=== PATIENT | male | born 1985 | race Caucasian/White ===

== ENCOUNTER 2018-11-10 10:48 | Emergency (ER) | payer OTHER, SELFPAY ==
[2018-11-10 10:49] VITALS: BP 121/93; PULSE 115; RESP 20; TEMP 37.1; O2SAT 96; BMI 35.6
--- NOTE | 2018-11-10 11:12 | RAD_ITS ---
STUDY: X-RAY CHEST REASON FOR EXAM: Male, 33 years old. Productive cough and fever TECHNIQUE: PA and lateral views of the chest. COMPARISON: None. FINDINGS: In the left midlung field, there is a focal area of consolidation which likely represents dense pneumonia measuring 3.4 x 6.3 cm. Lungs are otherwise clear. There is no demonstrated pleural abnormality. Normal size heart. Normal mediastinum and heather. Normal visualized pulmonary arteries. Normal visualized aortic arch and descending thoracic aorta. Normal visualized thoracic spine. Normal visualized ribs, clavicles, and shoulders. There is no demonstrated abnormality of the visualized soft tissue structures of the upper abdomen. RAD/Chest PA and Lateral IMPRESSION: Left mid lung dense consolidation/pneumonia. Right lung is clear. Less likely to represent malignancy, especially given patient's age. Recommend repeat chest x-ray in 2-4 weeks. Electronically Signed: Kaiser Oneill DO at 12:11 EST Tel , Service support ,
--- NOTE | 2018-11-10 11:12 | EKG12_ITS ---
Test Reason : FEVER Blood Pressure : / mmHG Vent. Rate : 100 BPM Atrial Rate : 100 BPM P-R Int : 154 ms QRS Dur : 080 ms QT Int : 334 ms P-R-T Axes : 067 -08 -04 degrees QTc Int : 430 ms Normal sinus rhythm Normal ECG Confirmed by CRISTAL ALCANTARA MD ([id number]), food editor ETIENNE DUBOSE ([id number]) on 11/15/2018 4:54:32 PM Referred By: CLAUDIO Confirmed By:CRISTAL ALCANTARA MD
--- NOTE | 2018-11-10 11:18 | NURSING ---
NO OLD EKGS
[2018-11-10 11:29] LABS: Absolute Lymphocyte Count 0.87 X10^3/ul (0.83-4.51); Absolute Neutrophil Count 6.5 X10^3/uL (2.0-7.7); Basophil# 0.02 X10^3/uL; Basophil% 0.2 % (0-1); Hematocrit 41.4 % (40-54); Hemoglobin 13.9 g/dl (13.0-16.5); Lymphocyte # 0.87 X10^3/ul (4.0); Lymphocyte % 10.6 % (19-41); Mean Corp Hgb Conc 33.6 g/gl (32-36); Mean Corpuscular Hgb 30.2 pg (27.0-32.0); Monocyte# 0.77 X10^3/uL; Monocyte% 9.4 % (0-10); Neutrophil # 6.51 X10^3/uL (2.7-7.7); Neutrophil % 79.6 % (47-70); POSITIVE COUNT NO; POSITIVE DIFFERENTIAL NO; POSITIVE MORPHOLOGY NO; Platelet Count 155 K/mm3 (150-450); RBC Distribution Width CV 12.8 % (11.6-14.6); RBC Distribution Width SD 41.9 fl (35.1-43.9); White Blood Count 8.2 K/mm3 (4.4-11.0)
[2018-11-10] MEDS: Ketorolac 30 MG/ML Syringe IV (11:29)
[2018-11-10] MEDS: Acetaminophen 500 MG Tablet 1000 MG PO (11:29)
[2018-11-10] MEDS: 0.9% Normal Saline 1,000 ML 999 ML IV (11:29)
[2018-11-10 11:45] LABS: Anion Gap 11 (5-15); BUN 11 mg/dL (7-18); BUN/Creat Ratio 8.1 RATIO (10-20); Calcium,Total 8.6 mg/dL (8.5-10.1); Chloride 103 mmol/L (98-107); Creatinine, Serum 1.35 mg/dL (0.70-1.30); EST Glomerular Filtration Rate 65 mL/min (>60); Est Glom Filt Rate - Afr Amer 78 mL/min (>60); Estimated Creatinine Clearance 87.96 ml/min; Glucose 119 mg/dL (74-106); Potassium 3.7 mmol/L (3.5-5.1); Sodium Level 137 mmol/L (136-145)
--- NOTE | 2018-11-10 12:19 | ED.VISSUMM ---
- ER Visit Summary Date of Service: 11/10/18 Chief Complaint: Cough and fever History of Present Illness: The patient is a [address] Oliva. He reports his cough and fever that began 3 days ago. Cough is nonproductive. Reports his fevers been gradually increasing and today was 104 degrees. Reports he has a mild sore throat. He denies any congestion or drainage. He reports he has mild shortness of breath. Is not been wheezing. He does complain of diffuse myalgias. Patient reports that he has gone to urgent care 2 days ago when he had a rapid flu that was negative. Is not had a chest x-ray. Physical Examination: Vitals: 98.8, 121/93, 115, 20, 96% room air which is not hypoxic. General: Well-nourished and well-developed. Head: Normocephalic atraumatic. Neck: Supple, no lymphadenopathy. No JVD. Nontender. Cardiovascular: Tachycardic regular rhythm. No murmurs. Respiratory: No respiratory distress. Clear to auscultation bilaterally. Abdominal: Soft, nontender, nondistended, normal bowel sounds. No guarding, rebound, or peritoneal signs. Back: Nontender. Extremities: Nontender, no edema. Skin: Normal color, no rash. Neurologic: Alert and oriented ?3. Cranial nerves II through XII are intact. Normal strength and sensation. Psych: Normal affect. Test Results: Influenza is negative. Chest x-ray shows a left upper lobe infiltrate. CBC is more for 7 neutrophils 80 and lymphocytes 11. Chem-7 marked creatinine 1.35 glucose 119. Emergency Department Course and Treatment: Patient had an IV placed. He was given a liter normal saline. He was given Toradol IV and Tylenol p.o. He was given Levaquin p.o. Treatment Plan: Patient feels well and would like to go home. His curb 65 is 0. He will be discharged on Levaquin instructed by Dr. Oliva in 1 week for another exam. Return to the emergency department for any worsening symptoms. Disposition: To home in improved and stable condition. Impression: 1. Pneumonia, community acquired. This note was generated with [employer] software. It may contain incorrect words, spelling, and punctuation that were not noted in review of the chart prior to signing ED Disposition - Plan for ED Patient: Chief Complaint: Fever Instructions: ED Pneumonia Adult Prescriptions: Levofloxacin [Levaquin] 750 mg PO DAILY #7 tablet Referrals: Goran Oliva DO [Primary Care Provider] - 1 Week
[2018-11-10] MEDS: levoFLOXacin 750 MG Tablet PO (12:30)
[2018-11-10 12:42] VITALS: BP 124/68; PULSE 90; RESP 16; O2SAT 96
== END 2018-11-10 12:45 | disposition home or self-care (01) ==
PROVIDERS: Emergency Provider Emergency Medicine; Family Provider Family Medicine; PCP Family Medicine
DX: J18.9 Pneumonia, unspecified organism (principal)
CPT/HCPCS: 71046; 80048; 85025; 87804; 93005; 96361; 96374; 99285; J7030

== ENCOUNTER → 2019-09-04 | Outpatient (CLI) | payer OTHER, SELFPAY ==
[2019-01-19 17:08] VITALS: BMI 35.6
--- NOTE | 2019-09-04 10:57 | RAD_ITS ---
STUDY: X-RAY - UNILATERAL RIBS ( LEFT ) WITH CHEST REASON FOR EXAM: Male, 34 years old. Left lateral rib pain following a fall. TECHNIQUE - RIBS: 4 view(s) of the ribs. TECHNIQUE - CHEST: Single PA view of the chest. COMPARISON: None. FINDINGS - RIBS: Normal visualized ribs without a demonstrated fracture. FINDINGS - CHEST: The lungs are clear and expanded. There is no demonstrated pleural abnormality. Normal size heart. Normal mediastinum and heather. Normal visualized pulmonary arteries. Normal visualized aortic arch and descending thoracic aorta. Normal visualized thoracic spine. Normal visualized ribs, clavicles, and shoulders. There is no demonstrated abnormality of the visualized soft tissue structures of the upper abdomen. RAD/Ribs Uni Min 3V w/PA Chest IMPRESSION: RIBS: Normal x-ray examination of the ribs. CHEST: Normal x-ray examination of the chest. Electronically Signed: Rex Dewitt, at 11:21 EST , Service support ,
== END | disposition home or self-care (01) ==
LOC: RAD 10:50
PROVIDERS: Family Provider Family Medicine; PCP Family Medicine; Referring Provider Family Medicine; Visit Provider Family Medicine
DX: R07.81 Pleurodynia (principal)
CPT/HCPCS: 71101

== ENCOUNTER → 2019-09-29 11:46 | Outpatient (CLI) | payer OTHER, SELFPAY ==
[2019-09-29 11:33] VITALS: BMI 35.6
--- NOTE | 2019-09-29 11:49 | RAD_ITS ---
STUDY: X-RAY - UNILATERAL RIBS ( LEFT ) REASON FOR EXAM: Male, 34 years old. TECHNIQUE: view(s) of the ribs. COMPARISON: None. FINDINGS: Normal visualized ribs without a demonstrated fracture. The visualized lung is clear and expanded. RAD/Ribs Unil 2V No CXR IMPRESSION: Normal x-ray examination of the ribs. Electronically Signed: Edith Pickard, at 12:16 EST Tel , Service support ,
== END ==
PROVIDERS: Family Provider Family Medicine; PCP Family Medicine; Referring Provider Physician Assistant Surgical; Visit Provider Physician Assistant Surgical
DX: R07.81 Pleurodynia (principal)
CPT/HCPCS: 71100

== ENCOUNTER 2023-11-03 01:00 | Emergency (ER) | payer OTHER, SELFPAY ==
[2023-11-03 01:04] VITALS: BP 139/86; PULSE 77; RESP 16; TEMP 36.6; O2SAT 100; BMI 29.0
--- OUTSIDE RECORDS SUMMARY | 2023-11-03 01:14 | XMS RPT_ITS | CCD ---
Author Name Unknown Address [address] [place] [address] Organization [facility] Results Test Name Value Interpretation Reference Range Facil ity Encounters Encounter Date Encounter Type Care Provider Facility Start: 11-08-2018 End: 11-10-2018 [facility] Procedures Date Procedure Procedure Detail Performing Clinician Start: 11-08-2018 Follow-up visit Summary Purpose Family History No Family History Records FoundNo Family History Records FoundNo Family History Records Found Advance Directives No Advanced Directives Records FoundNo Advanced Directives Records FoundNo Advanced Directives Records Found Additional Source Comments (unrecognized sect ion and content) No Status Records FoundNo Status Records FoundNo Status Records Found INFORMATION SOURCE (unrecogn ized section and content) DATE CREATED AUTHOR AUTHOR'S ORGANIZ ATION 11/11/2018 [facility] DATE CREATED AUTHOR AUTHOR'S ORGANIZ ATION 10/14/2022 [facility] FOR RECORDS PERTAINING TO PATIENTS WHO ARE OR HAVE BEEN ENROLLED IN A CHEMICAL DEPENDENCY/SUBSTANCEABUSE PROGRAM, SOME INFORMATION MAY BE OMITTED. This clinical summary was aggregated from multiple sources. Caution should be exercised in using it in the provision of clinical care. This summary normalizes information from multiple sources, and as a consequence, information in this document may materially change the coding, format and clinical context of patient data. In addition, data may be omitted in some cases. CLINICAL DECISIONS SHOULD BE BASED ON THE PRIMARY CLINICAL RECORDS. [employer] provides no warranty or guarantee of the accuracy or completeness of information in this document.
--- NOTE | 2023-11-03 01:40 | CT_ITS ---
EXAM: CT ABDOMEN AND PELVIS WITH INTRAVENOUS CONTRAST CLINICAL INDICATION: diarrhea, rectal pain -- IV PO Contrast TECHNIQUE: Helically acquired images were obtained of the abdomen and pelvis with intravenous contrast. This CT exam was performed using one or more of the following dose reduction techniques: automated exposure control, adjustment of the mA and/or kV according to patient size, and/or use of iterative reconstruction technique. RADIATION DOSE: CTDIvol = 14.21 mGy, DLP = 984.40 mGy-cmContrast: Oral and amp; IV Gastrografin and amp; 100mL Isovue-370 COMPARISON: No relevant prior studies available. FINDINGS: LOWER THORAX: Unremarkable. Lung bases are clear. No cardiomegaly. No significant pericardial effusion. ABDOMEN: LIVER: Unremarkable. Homogeneous. No focal mass. GALLBLADDER AND BILE DUCTS: Unremarkable. No calcified gallstones. No gallbladder distention or wall edema. No intra- or extrahepatic biliary ductal dilation. Normal tortuous gallbladder contains slight gas is seen just inferior to the right lobe of the liver. The cecum is mildly high in position. The jejunum-ligament of Treitz appears normal in position and there is normal orientation of the SMA and SMV. PANCREAS: Unremarkable. No focal cystic or solid mass. SPLEEN: Borderline-mild splenomegaly, 14.2 cm craniocaudal. ADRENALS: Unremarkable. No nodules. KIDNEYS AND URETERS: Unremarkable. Normal renal size and position. No hydronephrosis. STOMACH AND BOWEL: Moderate hypodense fluid in the proximal half of the colon. At least mild wall thickening of distal sigmoid and rectum and descending colon, likely mild distal colitis- proctitis considering the patient''s presentation. Moderate fluid and gas in the proximal three quarters of the colon. Oral contrast reached mid small bowel, no evidence of a high-grade obstruction. PELVIS: APPENDIX: No evidence of acute appendicitis. BLADDER: Unremarkable. REPRODUCTIVE: Unremarkable as visualized. No mass. ABDOMEN and PELVIS: INTRAPERITONEAL SPACE: Slight fluid in the pelvis. No free air. BONES/JOINTS: Unremarkable. No suspicious lytic or blastic abnormality. SOFT TISSUES: Unremarkable. No discrete abdominal or pelvic wall hernia. VASCULATURE: Unremarkable. Abdominal aorta is non-dilated. LYMPH NODES: Mesenteric adenopathy. Uncertain chronicity moderate, numerous mildly enlarged lymph nodes throughout the root of the mesentery and in the right abdomen. CT/Abdomen/Pelvis WITH Contrast IMPRESSION: 1. Findings most likely due to multifocal colitis involving descending colon, mid and distal sigmoid, and rectum. Mildly thick-walled and almost collapsed appearance. 2. Prominent fluid and gas in the proximal half of the colon with slight mucosal enhancement. Possibly also early colitis involving the proximal half of the colon. 3. Normal appendix. 4. Mesenteric adenopathy, moderate, uncertain chronicity. 5. Mild splenomegaly. 6. Slight intrapelvic fluid. Electronically Signed: Gloria Costa MD at 4:49 EST ,
[2023-11-03] MEDS: Ondansetron 4 MG/2 ML Vial IV (01:51)
[2023-11-03] MEDS: Morphine 4 MG/ML Syringe IV (01:51)
[2023-11-03] MEDS: 0.9% Normal Saline (1000mL) 1,000 ML 150 ML IV (01:53)
[2023-11-03 02:02] LABS: Absolute Lymphocyte Count 1.18 X10^3/uL (0.83-4.51); Absolute Neutrophil Count 2.5 X10^3/uL (2.0-7.7); Basophil# 0.02 X10^3/uL; Basophil% 0.5 % (0-1); Eosinophil# 0.06 X10^3/uL; Eosinophils% 1.4 % (0-5); Hematocrit 39.6 % (40-54); Hemoglobin 13.8 g/dL (13.0-16.5); Lymphocyte # 1.18 X10^3/ul (0.83-4.51); Lymphocyte % 26.7 % (19-41); Mean Corp Hgb Conc 34.8 g/dL (32-36); Mean Corpuscular Hgb 30.7 pg (27.0-32.0); Mean Corpuscular Volume 88.2 fL (80-94); Mean Platelet Vol. 10.5 fl (6.2-12.0); Monocyte# 0.69 X10^3/uL; Monocyte% 15.6 % (0-10); NRBC Flagged by Analyzer 0 % (0-5); Neutrophil # 2.46 X10^3/uL (2.7-7.7); Neutrophil % 55.6 % (47-70); Platelet Count 141 K/mm3 (150-450); RBC Distribution Width CV 11.8 % (11.6-14.6); Red Blood Count 4.49 M/mm3 (4.6-6.2); White Blood Count 4.4 K/mm3 (4.4-11.0)
[2023-11-03 02:16] LABS: Anion Gap 6 (5-15); BUN 18 mg/dL (7-18); Calcium,Total 8.4 mg/dL (8.5-10.1); Chloride 107 mmol/L (98-107); EST Glomerular Filtration Rate 72 mL/min (>60); Est Glom Filt Rate - Afr Amer 87 mL/min (>60); Estimated Creatinine Clearance 94.33 ml/min; Glucose 89 mg/dL (74-106); Potassium 3.3 mmol/L (3.5-5.1); Sodium Level 137 mmol/L (136-145)
[2023-11-03 02:25] VITALS: BP 117/75; PULSE 83; RESP 15; O2SAT 100
[2023-11-03] MEDS: HYDROmorphone 0.5 MG/0.5 ML SYRINGE IV ×2 (02:29→04:37)
--- NOTE | 2023-11-03 03:03 | EDS_ITS ---
HPI History of Present Illness Chief Complaint: Diarrhea Informant: patient Onset/Context/Timing Onset: Days (5 days) Narrative Narrative: Patient presents secondary to abdominal pain and diarrhea. He states he dev eloped diarrhea on the . He had abdominal cramping that seem to subside yesterday. He had a semisolid stool yesterday. He woke this morning with recurrent diarrhea and increased pain. No fever or chills. No blood in the stool. No history of IBS or ulcerative colitis. [facility] Medical History (Updated 11/03/23 @ 05:[address] Sofia Sepulveda MD) Arthritis Home Medications ciprofloxacin HCl 500 mg tablet 500 mg PO BID #14 TABLETS 11/03/23 [Rx Last Taken Unknown] metronidazole 500 mg tablet 500 mg PO BID 7 days #14 tabs 11/03/23 [Rx Last Taken Unknown] prednisone 20 mg tablet 40 mg (2 x 20 mg) PO DAILY #8 tabs 11/03/23 [Rx Last Taken Unknown] Allergy/AdvReac Type Severity Reaction Status Date / Time amoxicillin Allergy Unknown Verified 11/03/23 01:04 Penicillins Allergy Unknown Verified 11/03/23 01:04 Social History Smoking Status: Never smoker alcohol intake: current alcohol intake frequency: a few times a week Alcohol type: beer ROS ROS ED Constitutional Constitutional ED: Denies chills or fever(s) Eyes Eyes: Denies discharge from eye(s) ENT ENT ED: Denies discharge from eye(s), rhinorrhea or sore throat Cardiovascular Cardiovascular: Denies chest pain or palpitations Respiratory/Chest Respiratory/Chest: Denies cough or dyspnea Gastrointestinal Gastrointestinal: Reports abdominal pain and diarrhea; Denies nausea or vomiting Genitourinary Genitourinary ED: Denies dysuria Musculoskeletal Musculoskeletal: Denies back pain or extremity pain Integumentary Denies Abrasions or rash Neurologic Neurologic: Denies headache(s) or weakness Psychiatric Psychiatric: Denies anxiety or depression Allergic/Immunologic Allergic/Immunologic ED: Denies lip swelling or urticaria EXAM Physical Exam Const Vital Signs: 11/03/23 01:04 11/03/23 02:25 Temperature 97.8 F Temperature Source Temporal Pulse Rate 77 83 Respiratory Rate 16 15 Blood Pressure 139/86 H 117/75 Blood Pressure Mean 103 89 Pulse Ox 100 100 Oxygen Delivery Method Room Air Room Air Positive well nourished and well developed General Appearance ED: well developed HEENT Reports moist mucous membranes Eyes EOMs intact bilaterally Chest Wall inspection of chest normal and palpation of chest normal Resp normal respiratory effort and clear to auscultation bilaterally Cardio regular rate and regular rhythm GI GI Narrative: Abdomen soft with mild tenderness in the lower abdomen. No guarding or rebound. Auscultation: normoactive bowel sounds Extremity normal to inspection Neuro oriented x3 and no sensory deficits noted Motor Exam: strength 5/5 throughout Psych mental status grossly normal Skin no rashes or lesions noted MDM MDM MDM Narrative Medical decision making narrative: IV line established. Patient given morphine and Zofran for pain and nausea. Labwork obtained to evaluate for leukocytosis, anemia, and electrolyte derangement. CT scan of the abdomen and pelvis obtained to evaluate for colitis or possible early abscess formation. History & Record Review Discussion w/independent historian: Patient and Family Lab Data Attestation: I reviewed the patient's lab results. Labs: Laboratory Results - last 24 hr 11/03/23 01:55 WBC 4.4 RBC 4.49 L Hgb 13.8 Hct 39.6 L MCV 88.2 MCH 30.7 MCHC 34.8 RDW Std Deviation 38.0 RDW Coeff of Francisco Javier 11.8 Plt Count 141 L MPV 10.5 Immature Gran % (Auto) 0.200 Neut % (Auto) 55.6 Lymph % (Auto) 26.7 Lewis % (Auto) 15.6 H Eos % (Auto) 1.4 Baso % (Auto) 0.5 Absolute Neuts (auto) 2.5 Absolute Lymphs (auto) 1.18 Nucleated RBC % 0 Sodium 137 Potassium 3.3 L Chloride 107 Carbon Dioxide 24.0 Anion Gap 6 BUN 18 Creatinine 1.20 Estim Creat Clear Calc 94.33 Est GFR (MDRD) Af Amer 87 Est GFR (MDRD) Non-Af 72 BUN/Creatinine Ratio 15.0 Glucose 89 Calcium 8.4 L Radiography Diagnostic Testing: Clinical Impression(s) from Imaging Studies Abdomen/Pelvis CT 11/03/23 01:40 IMPRESSION: 1. Findings most likely due to multifocal colitis involving descending colon, mid and distal sigmoid, and rectum. Mildly thick-walled and almost collapsed appearance. 2. Prominent fluid and gas in the proximal half of the colon with slight mucosal enhancement. Possibly also early colitis involving the proximal half of the colon. 3. Normal appendix. 4. Mesenteric adenopathy, moderate, uncertain chronicity. 5. Mild splenomegaly. 6. Slight intrapelvic fluid. Electronically Signed: Gloria Costa MD at 4:49 EST Reading Location ID and State: [facility] / [place] Tel , Service support , Treatment and Re-Evaluation :: CBC reveals normal white count 4.4 with a hemoglobin of 13.8. Differential unremarkable. Chemistry studies reveal slightly low potassium at 3.3. Creatinine is 1.2. CT scan with contrast reveals findings most likely due to multifocal colitis involving the descending colon, mid and distal sigmoid, and rectum. Possible early colitis involving the proximal half of the colon as well. Normal appendix is noted. Patient feels that he likely had food poisoning which triggered his illness. Given that he was improving and now worsened again I will go ahead and treat him with antibiotics as well as a short course of steroids. I will refer him to GI for follow-up. Return instructions given. Discharge Plan Triage Chief Complaint: Diarrhea ED Provider: Sofia Sepulveda Dx/Rx/DC Orders Clinical Impression: Colitis Instructions: ED Understanding Colitis Prescriptions: New prednisone 20 mg tablet 40 mg PO DAILY Qty: 8 0RF ciprofloxacin HCl 500 mg tablet 500 mg PO BID Qty: 14 0RF metronidazole 500 mg tablet 500 mg PO BID 7 Days Qty: 14 0RF Primary Care Provider: Goran Oliva Referrals: Goran Oliva DO [Primary Care Provider] - 1 Week Friend,DO Jesse [Med Staff - Active Staff] - As Needed Disposition Disposition: Home, Self Care
[2023-11-03 05:08] VITALS: BP 121/77; PULSE 76; RESP 15; O2SAT 97
[2023-11-03] MEDS: predniSONE 20 MG Tablet 40 MG PO (05:16)
[2023-11-03] MEDS: metroNIDAZOLE 500 MG Tablet PO (05:16)
[2023-11-03] MEDS: Ciprofloxacin 500 MG Tablet PO (05:16)
== END 2023-11-03 05:22 | disposition home or self-care (01) ==
PROVIDERS: Emergency Provider Emergency Medicine; PCP Family Medicine; Visit Provider Emergency Medicine
DX: K52.9 Noninfective gastroenteritis and colitis, unspecified (principal)
CPT/HCPCS: 74177; 80048; 85025; 96374; 96375; 96376; 99283; J7030; Q9967; A4216; J2405

== ENCOUNTER → 2023-11-10 | Outpatient (CLI) | payer OTHER, SELFPAY ==
[2023-11-10 09:57] LABS: Hematocrit 43.4 % (40-54); Hemoglobin 14.7 g/dL (13.0-16.5)
[2023-11-10 12:10] LABS: ALB/GLOB Ratio 1.1 RATIO (0.9-2.4); AST(SGOT) 45 U/L (15-37); Alanine Aminotransfer ALT/SGPT 91 U/L (16-61); Albumin, Serum 3.6 g/dL (3.2-5.0); Alkaline Phosphatase 57 U/L (45-117); Anion Gap 4 (5-15); BUN 11 mg/dL (7-18); BUN/Creat Ratio 8.6 RATIO (10-20); Calcium,Total 8.9 mg/dL (8.5-10.1); Chloride 109 mmol/L (98-107); Cholesterol 153 mg/dL (200); Creatinine, Serum 1.28 mg/dL (0.70-1.30); EST Glomerular Filtration Rate 67 mL/min (>60); Est Glom Filt Rate - Afr Amer 81 mL/min (>60); Estradiol 20.4 pg/mL; Follicle Stimulating Hormone 24.9 mIU/mL; Globulin 3.2 g/dL (2.2-4.2); Glucose 90 mg/dL (74-106); High Density Lipoprotein 60 mg/dL; Luteinizing Hormone 7.2 mIU/mL; PSA,Total - Annual Screen 0.64 ng/mL (0.00-4.00); Potassium 3.8 mmol/L (3.5-5.1); Prolactin 12.8 ng/mL; Protein, Total 6.8 g/dL (6.4-8.2); Sodium Level 140 mmol/L (136-145); Thyroid Stim Hormone (TSH) 1.61 uIU/mL (0.358-3.74); Triglycerides 88 mg/dL; Very Low Density Lipoprotein 18 mg/dL (5-40)
[2023-11-19 18:07] LABS: Sex Hormone-binding Globulin 44.4 nmol/L (16.5-55.9); Testosterone, % Free 1.56 % (1.50-4.20); Testosterone, Free 6.61 ng/dL (5.00-21.00); Testosterone, Total 424 ng/dL (264-916)
== END | disposition home or self-care (01) ==
PROVIDERS: PCP Family Medicine; Referring Provider Registered Nurse; Visit Provider Registered Nurse
DX: E29.1 Testicular hypofunction (principal); R53.83 Other fatigue; R68.82 Decreased libido; R63.5 Abnormal weight gain; R35.0 Frequency of micturition; R39.16 Straining to void; Z12.5 Encounter for screening for malignant neoplasm of prostate
CPT/HCPCS: 36415; 80053; 80061; 82627; 82670; 83001; 83002; 84146; 84153; 84270; 84402; 84403; 84443; 85014; 85018; 82626; G0103

== ENCOUNTER 2024-07-02 12:33 | Emergency (ER) | payer OTHER, SELFPAY ==
[2024-07-02 12:33] VITALS: BP 134/87; PULSE 92; RESP 16; TEMP 36.8; O2SAT 99; BMI 28.3
--- NOTE | 2024-07-02 13:20 | CT_ITS ---
EXAM: CT HEAD WITHOUT INTRAVENOUS CONTRAST CLINICAL INDICATION: frontal injury pain. TECHNIQUE: Multiple axial images were obtained of the head without intravenous contrast. This CT exam was performed using one or more of the following dose reduction techniques: automated exposure control, adjustment of the mA and/or kV according to patient size, and/or use of iterative reconstruction technique. COMPARISON: No relevant prior studies available. FINDINGS: BRAIN AND EXTRA-AXIAL SPACES: No significant abnormality. No intra- or extra-axial hemorrhage. No evidence of acute infarct. No intracranial mass or mass effect. There is preservation of the gutierrez/white matter interface. Ventricles are appropriate for age. Basal cisterns are patent. BONES/JOINTS: No significant abnormality. No discrete lytic or blastic abnormalities. SINUSES: Mucosal thickening in the paranasal sinuses. MASTOID AIR CELLS: No significant effusion. ORBITS: No acute findings. CT/Brain/Head without Contrast IMPRESSION: 1. No CT evidence of acute intracranial pathology. 2. Mucosal thickening in the paranasal sinuses. Correlate for associated symptoms. Electronically Signed: Tato Clark DO at 14:16 EDT ,
--- NOTE | 2024-07-02 13:25 | EDS_ITS ---
HPI History of Present Illness Chief Complaint: Head Injury Informant: patient Narrative Narrative: 39-year-old male states that on Wednesday night (posttrauma day 2) he opened a car door striking his left frontal forehead. This resulted in an abrasion and contusion. He notes continued localized pain. He denies any visual changes drainage from the ear nose. He notes no arm or leg or speech difficulties. He is concerned he may have a skull fracture because of the continued localized pain. [facility] Medical History (Updated 07/02/24 @ 14:[address] Dennis Howard DO) Arthritis Home Medications ?Medication ?Instructions ?Recorded ?Last Taken ?Type ciprofloxacin HCl 500 mg tablet 500 mg PO BID #14 TABLETS 11/03/23 Unknown Rx metronidazole 500 mg tablet 500 mg PO BID 7 days #14 tabs 11/03/23 Unknown Rx prednisone 20 mg tablet 40 mg (2 x 20 mg) PO DAILY #8 tabs 11/03/23 Unknown Rx Allergy/AdvReac Type Severity Reaction Status Date / Time amoxicillin Allergy Unknown Verified 07/02/24 12:36 Penicillins Allergy Unknown Verified 07/02/24 12:36 Social History Smoking Status: Never smoker alcohol intake: current alcohol intake frequency: a few times a week Alcohol type: beer ROS ROS ED Constitutional Constitutional ED: Denies chills, fever(s) or weight loss Eyes Eyes: Denies change in vision or diplopia ENT ENT ED: Denies ear pain, rhinorrhea or sore throat Cardiovascular Cardiovascular: Denies chest pain, orthopnea, palpitations or racing heartbeat Respiratory/Chest Respiratory/Chest: Denies cough, dyspnea or orthopnea Gastrointestinal Gastrointestinal: Denies abdominal pain, diarrhea, nausea or vomiting Genitourinary Genitourinary ED: Denies dysuria, hematuria or urinary frequency Musculoskeletal Musculoskeletal: Denies arthralgias or myalgias Integumentary Reports Abrasions; Denies abscess or rash Neurologic Neurologic: Reports headache(s); Denies weakness Psychiatric Psychiatric: Denies anxiety, depression, suicidal ideation or suicidal thoughts Endocrine Endocrinology: Denies polydipsia, polyphagia or polyuria Allergic/Immunologic Allergic/Immunologic ED: Denies mouth swelling, tongue swelling or urticaria EXAM Physical Exam Const Vital Signs: 07/02/24 12:33 Temperature 98.2 F Temperature Source Temporal Pulse Rate 92 Respiratory Rate 16 Blood Pressure 134/87 H Blood Pressure Mean 102 Pulse Ox 99 Oxygen Delivery Method Room Air Positive well nourished and well developed General Appearance ED: well developed HEENT Reports normocephalic and moist mucous membranes HEENT Narrative: Mid left forehead just above the eyebrow is a linear superficial abrasion that is healing. This measures about 2.5 cm. There is mild surrounding hematoma. There is no palpable bony depression. Patient is able to wrinkle eyebrows. Supraorbital notch appears normal. Eyes PERRL and EOMs intact bilaterally Neck no lymphadenopathy, supple and no JVD Resp normal respiratory effort and clear to auscultation bilaterally Cardio regular rate, regular rhythm and no murmurs GI normal to inspection, nondistended, normoactive bowel sounds and non-tender Palpation: soft Back/Spine no CVA tenderness and normal ROM Extremity normal to inspection General Extremety ED: Negative for edema General Extremity: Negative for edema Neuro oriented x3 and CN's II-XII intact bilaterally Sensorium / Orientation: alert Motor Exam: strength 5/5 throughout Psych mental status grossly normal Mood & Affect: Negative for depressed or tearful Skin no rashes or lesions noted and no wounds MDM MDM MDM Narrative Medical decision making narrative: Differential diagnosis includes but not limited to skull fracture intracranial hemorrhage facial fracture bone contusion cutaneous contusion abscess CT the brain demonstrates no skull fracture intracranial hemorrhage or hematoma. Neurologically the patient is intact. He will be discharged home with supportive care. Diagnosis will be facial contusion and abrasion History & Record Review Discussion w/independent historian: Patient Radiography Diagnostic Testing: Clinical Impression(s) from Imaging Studies Brain CT 07/02/24 13:[address]: 1[address] evidence of acute intracranial pathology. 2. Mucosal thickening in the paranasal sinuses. Correlate for associated symptoms. Electronically Signed: Tato Clark DO at 14:16 EDT , Discharge Plan Triage Chief Complaint: Head Injury ED Provider: Dennis Howard Dx/Rx/DC Orders Clinical Impression: Forehead contusion, Abrasion of forehead Instructions: ED Facial Contusion Prescriptions: No Action prednisone 20 mg tablet 40 mg PO DAILY Qty: 8 0RF ciprofloxacin HCl 500 mg tablet 500 mg PO BID Qty: 14 0RF metronidazole 500 mg tablet 500 mg PO BID 7 Days Qty: 14 0RF Primary Care Provider: Goran Oliva Referrals: Goran Oliva DO [Primary Care Provider] - As Needed Print Language: [place] Disposition Disposition: Home, Self Care
[2024-07-02 14:43] VITALS: BP 127/66; PULSE 58; RESP 16; TEMP 36.1; O2SAT 99
== END 2024-07-02 14:44 | disposition home or self-care (01) ==
PROVIDERS: Emergency Provider Emergency Medicine; PCP Family Medicine; Visit Provider Emergency Medicine
DX: S00.83XA Contusion of other part of head, initial encounter (principal); X58.XXXA Exposure to other specified factors, initial encounter
CPT/HCPCS: 70450; 99282

== ENCOUNTER → 2024-10-16 | Outpatient (CLI) | payer OTHER, SELFPAY ==
[2024-10-16 18:45] LABS: AST(SGOT) 24 U/L (15-37); Alanine Aminotransfer ALT/SGPT 23 U/L (16-61); Albumin, Serum 4.1 g/dL (3.2-5.0); Alkaline Phosphatase 56 U/L (45-117); Bilirubin, Direct 0.18 mg/dL (0.00-0.30); Globulin 3.5 g/dL (2.2-4.2); Protein, Total 7.6 g/dL (6.4-8.2)
[2024-10-16 19:06] LABS: Amphetamine Urine VISTA NEGATIVE (<1000 ng/mL); Barbiturate Urine VISTA NEGATIVE (< 200 ng/mL); Benzodiazepine Urine VISTA NEGATIVE (< 200 ng/mL); Cocaine Urine VISTA NEGATIVE (< 300 ng/mL); Ecstacy Urine VISTA NEGATIVE (< 500 ng/mL); Methadone Urine VISTA NEGATIVE (< 300 ng/mL); PCP Urine VISTA NEGATIVE (< 25 ng/mL); THC Urine VISTA NEGATIVE (< 50 ng/mL); Vista UDS pH Range 7
== END | disposition home or self-care (01) ==
LOC: BFHLAB 16:30
PROVIDERS: PCP Family Medicine; Referring Provider Family Medicine; Visit Provider Family Medicine
DX: R74.8 Abnormal levels of other serum enzymes (principal); Z79.899 Other long term (current) drug therapy
CPT/HCPCS: 36415; 80076; 80307

== ENCOUNTER → 2024-12-12 | Outpatient (CLI) | payer OTHER, SELFPAY ==
[2024-12-12 19:45] LABS: Amphetamine Urine NEGATIVE (<1000 ng/mL); Barbiturate Urine VISTA NEGATIVE (< 200 ng/mL); Benzodiazepine Urine VISTA NEGATIVE (< 200 ng/mL); Cocaine Urine VISTA NEGATIVE (< 300 ng/mL); Ecstacy Urine VISTA NEGATIVE (< 500 ng/mL); Methadone Urine VISTA NEGATIVE (< 300 ng/mL); Opiates Urine NEGATIVE (< 300 ng/mL); PCP Urine NEGATIVE (< 25 ng/mL); THC Urine VISTA NEGATIVE (< 50 ng/mL); Vista UDS pH Range 6
== END | disposition home or self-care (01) ==
PROVIDERS: PCP Family Medicine; Visit Provider Family Medicine
DX: Z79.899 Other long term (current) drug therapy (principal)
CPT/HCPCS: 80307

== ENCOUNTER → 2025-04-27 | Outpatient (CLI) | payer OTHER, SELFPAY | END | disposition home or self-care (01) | PROVIDERS: PCP Family Medicine; Referring Provider Family Medicine; Visit Provider Family Medicine | DX: E29.1 Testicular hypofunction (principal) | CPT/HCPCS: 36415; 84403 ==